=== PATIENT | female | born 1975 | race Caucasian/White ===

== ENCOUNTER → 2019-09-05 | Outpatient (CLI) | payer OTHER ==
--- NOTE | 2019-09-07 16:48 | MAM ---
EXAM DESCRIPTION: 3D Screening BILATERAL : Digital Mammography. CLINICAL HISTORY: 43 years Female SCREENING . No complaints. No personal or family history of breast cancer. Menarche age 11. Childbirth. Hysterectomy 5 years plus. No HRT. Lifetime risk of developing breast cancer (Tyrer-Cuzick model)(%): 8.7. COMPARISON: None available. No prior reports available. TECHNIQUE: Bilateral CC and MLO projection full-field images, digital tomosynthesis mammographic technique. Bilateral digital 2-D full-field MLO images. CAD not available for tomosynthesis or 2-D images. FINDINGS: The breast parenchymal density pattern is: Scattered areas of fibroglandular density. No skin thickening or nipple retraction. Multiple surgical clips abutting the left pectoral muscle. Small solitary microcalcifications bilaterally. Architectural distortion bilateral breasts more prominent at the 9:00 position of the right breast abutting the pectoral muscle. Minimal focal asymmetry also. Question of a mass density at the 12:00 position of the left breast 2 cm from the nipple. IMPRESSION: BI-RADS CATEGORY: 0 - INCOMPLETE- Need additional imaging evaluation. FOLLOW-UP: Recall for additional imaging: Bilateral full-field LM 2-D and tomosynthesis images. Additional diagnostic images depending on these findings. Bilateral targeted breast ultrasound.. Written communication concerning the IMPRESSION and Follow-up, will be mailed to the patient and referring health care provider. Electronically signed by: Dany Morgan MD 09/07/2019 4:46 PM CDT
== END ==
LOC: MAMMO 16:00
PROVIDERS: ATTEND Family Medicine
DX: Z12.31 Encounter for screening mammogram for malignant neoplasm of breast (principal)

== ENCOUNTER → 2019-10-22 | Outpatient (CLI) | payer OTHER ==
--- NOTE | 2019-10-24 09:38 | US ---
EXAM DESCRIPTION: 3D Diagnostic, Bilateral (accession [id number]), Breast,Bilateral (accession [id number]): Ultrasound CLINICAL HISTORY: 43 yearsFemaleABN MAMMO No personal or family history of breast cancer. Menarche age 11. Childbirth. Hysterectomy 5 years plus. No HRT. Previous breast reduction bilaterally. Lifetime risk of developing breast cancer (Tyrer-Cuzick model)(%): 8.7. COMPARISON: Bilateral screening digital breast tomosynthesis 05 September 2019. TECHNIQUE: Bilateral LM projection full-field images, digital tomosynthesis technique. Bilateral 2-D digital full-field images: LM and CC projections. CAD not available. . Transcutaneous scanning of the bilateral breasts utilizing fong-scale and Doppler modes. Scanning performed by the textile finisher ; observation by Dr. Morgan. FINDINGS: The breast parenchymal density pattern is: Scattered areas of fibroglandular density. No skin thickening or nipple retraction architectural distortion on the lateral posterior third right breast is again seen and is most likely related to previous breast reduction surgery. Surgical clips visualized at the 12:00 position of the posterior third of the left breast abutting the chest wall. Focal asymmetry retroareolar left breast is stable. No new focal, stellate mass or density, focal asymmetry , and no suspicious microcalcifications bilaterally since screening study. Ultrasound: Scanning right breast 9:00 position posterior third abutting the chest wall. Mixture of fibroglandular and fatty tissues. No dominant solid mass, no distinct cyst, no large calcifications or parenchymal edema. No overlying skin changes. Scanning of the upper anterior left breast emphasis at the 12:00 position. Mixture of fibroglandular and fatty tissues. Mostly fibroglandular at 12:00. No dominant solid mass, no distinct cyst, no parenchymal edema, no large calcifications. No overlying skin changes. IMPRESSION: Benign exam. BIRAD CATEGORY: 2 BENIGN FINDINGS. RECOMMENDATIONS: FOLLOW UP: Return to routine digital bilateral mammographic screening, one year interval from September 2019. Written communication explaining the IMPRESSION and follow-up, will be mailed to the patient and referring health care provider. The FINDINGS and the FOLLOW-UP plan were reviewed in person with the patient after the examination. According to the [employer], yearly mammograms are recommended starting at age 40 and continuing as long as a woman is in good health. Any breast change noted on a breast self-exam should be reported promptly to the patient's healthcare provider. Breast MRI is recommended for women with an approximately 20-25% or greater lifetime risk of breast cancer, including women with a strong family history of breast or ovarian cancer and women who have been treated for Hodgkin's disease. A negative mammographic report should not delay tissue diagnosis in patients with significant clinical history or physical findings. Extremely dense breast tissue limits the sensitivity of digital mammography. Electronically signed by: Dany Morgan MD 10/24/2019 9:37 AM [facility]
== END ==
LOC: MAMMO 13:36
PROVIDERS: ATTEND Nurse Practitioner Family
DX: R92.2 Inconclusive mammogram (principal)
CPT/HCPCS: 76641; 77066; G0279

== ENCOUNTER → 2020-09-09 | Outpatient (CLI) | payer BC, OTHER ==
--- NOTE | 2020-09-11 16:16 | MAM ---
EXAM DESCRIPTION: 3D Screening BILATERAL : Digital Mammography. CLINICAL HISTORY: 44 years Female . No complaints. No personal history of breast cancer. Bilateral breast augmentation since the prior study. Menarche age 11. Childbirth age 21. Menopause age 37. No HRT .. Lifetime risk of developing breast cancer (Tyrer-Cuzick model)(%): Not calculated COMPARISON: Bilateral screening digital breast tomosynthesis prior to breast augmentation August 2019. TECHNIQUE: Bilateral CC and MLO projection full-field images, with Chelsi Implant Displacement digital tomosynthesis mammographic technique. Bilateral 2-D digital full-field images, MLO and CC projections, non-displaced. Bilateral digital 2-D full-field MLO images. With implant displacement. CAD available for 2-D images. FINDINGS: The breast parenchymal density pattern is: Scattered areas of fibroglandular density. No skin thickening or nipple retraction. Bilateral subpectoral breast implants. Capsules are intact where seen. Axillary nodes. Solitary microcalcifications. Surgical clips left axilla stable. Focal asymmetry lower outer quadrant posterior third right breast. Compression is decreased on the implant displacement projections bilaterally compared to the pre-Implant projections on the prior study. No new focal, stellate mass or density, focal asymmetry , and no suspicious microcalcifications bilaterally. IMPRESSION: Benign exam. BIRAD CATEGORY: 2 BENIGN FINDINGS. RECOMMENDATIONS: FOLLOW UP: Routine digital bilateral mammographic screening, one year interval from September 2020. Written communication explaining the IMPRESSION and follow-up, will be mailed to the patient and referring health care provider. According to the [employer], yearly mammograms are recommended starting at age 40 and continuing as long as a woman is in good health. Any breast change noted on a breast self-exam should be reported promptly to the patient's healthcare provider. Breast MRI is recommended for women with an approximately 20-25% or greater lifetime risk of breast cancer, including women with a strong family history of breast or ovarian cancer and women who have been treated for Hodgkin's disease. A negative mammographic report should not delay tissue diagnosis in patients with significant clinical history or physical findings. Extremely dense breast tissue limits the sensitivity of digital mammography. Electronically signed by: Dany Morgan MD 09/11/2020 4:15 PM [employer]
== END ==
LOC: MAMMO 16:02
PROVIDERS: ATTEND Nurse Practitioner Family
DX: Z12.31 Encounter for screening mammogram for malignant neoplasm of breast (principal)